=== PATIENT | male | born 1930 | race Caucasian/White ===

== ENCOUNTER 2017-07-30 13:34 | Emergency (ER) | payer MEDICARE ==
[~2017-07-30] VITALS: Ht 165.1 cm; Wt 75.0 kg
[2017-07-30] MEDS ORDERED: ATOR80TA PO (14:01)
[2017-07-30] MEDS ORDERED: RIVA10TA PO (14:01)
[2017-07-30] MEDS ORDERED: OMEP-110 PO (14:01)
[2017-07-30] MEDS ORDERED: SPIR25TA3 PO (14:01)
[2017-07-30] MEDS ORDERED: TAMS0.4C2 PO (14:01)
[2017-07-30] MEDS ORDERED: LOSA50TA6 PO (14:01)
[2017-07-30] MEDS ORDERED: CARV25TA12 PO (14:01)
[2017-07-30] MEDS ORDERED: HYDR-882 PO (14:01)
[2017-07-30] MEDS ORDERED: METF500T4 PO (14:01)
[2017-07-30] MEDS ORDERED: SODIUM CHLORIDE FLUSH 10ML SYR IVF ONE (14:30)
[2017-07-30 14:56] LABS: MEAN CORPUSCULAR HEMOGLOBIN 33.2 pg (27.5-34.5); MEAN CORPUSCULAR HGB CONC 33.2 g/dL (33.2-36.2); MEAN CORPUSCULAR VOLUME 99.9 fL (81-97); MEAN PLATELET VOLUME 8.8 fL (7.4-10.4); PLATELET COUNT 253 x10^3/uL (130-400); RED BLOOD COUNT 4.19 x10^6/uL (4.38-5.82); RED CELL DISTRIBUTION WIDTH 13.9 % (9.4-14.8)
[2017-07-30 15:00] LABS: INTERNATIONAL NORMALIZED RATIO 1.04 (0.93-1.1); PROTHROMBIN TIME 10.7 Seconds (9.6-11.5)
[2017-07-30] MEDS ORDERED: PLEASE ENTER ALLERGIES MC SCH (15:00)
[2017-07-30 15:05] LABS: ALANINE AMINOTRANSFERASE 40 U/L (12-78); ALBUMIN 3.4 g/dL (3.4-5.0); ANION GAP 7 mmol/L (5-15); CALCIUM 8.7 mg/dL (8.5-10.1); CHLORIDE 98 mmol/L (98-107)
[2017-07-30 15:09] LABS: ALKALINE PHOSPHATASE 64 U/L (45-117); BILIRUBIN,TOTAL 0.5 mg/dL (0.2-1.0); TOTAL PROTEIN 6.9 g/dL (6.4-8.2)
[2017-07-30 15:22] LABS: MD YES
[2017-07-30 15:24] LABS: <PLATELET ESTIMATE> ADEQUATE; <PLT MORPHOLOGY> NORMAL PLT MORPH; <RBC MORPHOLOGY> NORMAL; EOS#(MANUAL) 0.33 x10^3/uL (0.0-0.4); EOS% (MANUAL) 2 % (1-7); LYMPH#(MANUAL) 2.48 x10^3/uL (1-3.4); LYMPHS% (MANUAL) 15 % (22-44); METAMYELOCYTES# (MANUAL) 0.17 x10^3/uL (0-0); METAMYELOCYTES% (MANUAL) 1 % (0-1); MONOS#(MANUAL) 0.83 x10^3/uL (0.3-2.7); MONOS% (MANUAL) 5 % (2-9); SEG#(MANUAL) 12.71 x10^3/uL (1.8-6.8); SEGS% (MANUAL) 77 % (42-75)
[2017-07-30 16:00] VITALS: BP 155/65
[2017-07-30 16:35] LABS: MICROSCOPIC NOT IND
[2017-07-30 16:36] LABS: CULTURE INDICATED? NO
[2017-07-30] MEDS ORDERED: OMNIPAQUE 350 MG/ML, 100ML BOTTLE ONE (17:57)
[2017-07-30] MEDS ORDERED: CEFTRIAXONE 500 MG in SODIUM CHLORIDE 0.9% 50 ML IV ONE (18:30)
== END 2017-07-30 19:07 | disposition home or self-care (01) ==
LOC: ED 17:16
DX: N40.1 Benign prostatic hyperplasia with lower urinary tract symptoms (principal); R33.8 Other retention of urine; E86.0 Dehydration; I10 Essential (primary) hypertension; I25.10 Atherosclerotic heart disease of native coronary artery without angina pectoris; Z79.01 Long term (current) use of anticoagulants; Z90.49 Acquired absence of other specified parts of digestive tract; Z95.1 Presence of aortocoronary bypass graft
CPT/HCPCS: 36415; 74177; 80053; 81003; 83880; 85025; 85610; 96365; 99285; J0696; Q9967